=== PATIENT | male | born 1995 | race Caucasian/White ===

== ENCOUNTER 2023-05-22 21:26 | Emergency (ER) | payer BC, OTHER ==
[~2023-05-22] VITALS: Ht 180.3 cm; Wt 68.0 kg
[2023-05-22 21:44] VITALS: BP_SYST 123; PULSE 75; RESP 18; TEMP 97.8; O2SAT 98
[2023-05-22] MEDS ORDERED: LIDOCAINE 1%, 20 ML MDV 20 ML ONE (22:09)
[2023-05-22] MEDS ORDERED: DIPHTH,PERTUSS(ACELL),TET VAC 0.5 ML VIAL (Tdap) I.M. ONE (22:15)
[2023-05-22] MEDS ORDERED: LIDOCAINE 1% 10 MG/ML, 20 ML MDV INJ ONE (22:15)
[2023-05-22] MEDS ORDERED: BACITRACIN 1 GM OINT TP ONE (22:20)
[2023-05-23 00:15] VITALS: BP_SYST 123; PULSE 75; RESP 18; TEMP 97.8; O2SAT 98
== END 2023-05-23 00:15 | disposition home or self-care (01) ==
LOC: SED 21:26
DX: S01.81XA Laceration without foreign body of other part of head, initial encounter (principal); S80.212A Abrasion, left knee, initial encounter; S80.211A Abrasion, right knee, initial encounter; M25.512 Pain in left shoulder; Z79.899 Other long term (current) drug therapy; V18.0XXA Pedal cycle driver injured in noncollision transport accident in nontraffic accident, initial encounter; Y93.89 Activity, other specified; Y92.89 Other specified places as the place of occurrence of the external cause; Y99.8 Other external cause status
CPT/HCPCS: 99283; 73030; 90715; 90471; 12013; J2001